=== PATIENT | male | born 1985 | race Caucasian/White ===

== ENCOUNTER 2020-01-23 19:03 | Emergency (ER) | payer OTHER ==
[~2020-01-23] VITALS: Ht 172.7 cm; Wt 72.6 kg
[2020-01-23 19:20] VITALS: Ht 172.7 cm; Wt 72.6 kg
[2020-01-23 20:25] VITALS: BP 119/80
== END 2020-01-23 20:44 | disposition home or self-care (01) ==
LOC: ED 19:03
DX: R05 Cough (principal); Z20.828 Contact with and (suspected) exposure to other viral communicable diseases
CPT/HCPCS: Q0092

== ENCOUNTER 2020-04-02 10:56 | Emergency (ER) | payer OTHER, SELFPAY ==
[~2020-04-02] VITALS: Ht 167.6 cm; Wt 75.3 kg
[2020-04-02 11:08] VITALS: Ht 167.6 cm; Wt 75.3 kg
[2020-04-02 13:18] VITALS: BP 122/91
== END 2020-04-02 13:18 | disposition home or self-care (01) ==
LOC: ED 10:56
DX: R05 Cough (principal); Z20.828 Contact with and (suspected) exposure to other viral communicable diseases
CPT/HCPCS: Q0092; U0003-CS